=== PATIENT | female | born 1945 | race Caucasian/White ===

== ENCOUNTER → 2018-12-05 | Day surgery (SDC) | payer MEDICARE ==
[~2018-12-05] MED LIST: ASPIRIN81 MG PO; ATORVASTATIN CA20 MG PO; FENTANYL CITRATE/PF 100MCG/2 ML INJ ONE; LISINOPRIL5 MG PO; MIDAZOLAM HCL 2 MG/2 ML VIAL ONE; OR PHACO EYE KIT ONE; PREOP PHACO EYE KIT ONE; PRILOSEC40 MG PO; SYNTHROID50 MCG PO; ZOCOR40 MG PO
--- OUTSIDE RECORDS SUMMARY | 2018-12-05 07:08 | XMS REPORT ---
Author Author [facility] Address Unknown Phone Unavailable Care Team Providers [employer] Counter Clerk Name Role Phone Unavailable Unavailable Payers Payer Name Policy Type Policy Number Effective Date Expiration Date Problems This patient has no known problems. Allergies, Adverse Reactions, Alerts Allergy Name Allergy Type Status Severity Reaction(s) Onset Date Inactive Date Treating Clinician Comments codeine DA Active U 2012-09-28 00:00:00 loratadine DA Active U 2012-09-28 00:00:00 levofloxacin DA Active U 2012-09-28 00:00:00 Medications This patient has no known medications. Results Test Description Test Time Test Comments Text Results Atomic Results Result Comments ACETYLCHOLINE RECEPT BINDNG AB 2018-10-02 15:09:00 ACETYLCHOLINE RECEPT BINDNG AB (test code=ACETAB) <0.03 nmol/L 0.00-0.24 Negative: 0.00 - 0.24 Borderline: 0.25 - 0.40 Positive: > 0.40Performed At: [facility] [id number] Lucio MD Ph:[phone] [id number] 02:57:00* Test Item Value Reference Range Comments TROPONIN-I (test code=TROPI) 0.053 ng/mL 0-0.045 RESULT VERIFIED BY REPEAT ANALYSIS COMMENTS TO MIRROR SPECIALIST: COLLECT 3 HOURS AFTER PREVIOUS [id number] 23:40:00* Test Item Value Reference Range Comments TROPONIN-I (test code=TROPI) 0.062 ng/mL 0-0.045 RESULT VERIFIED BY REPEAT ANALYSIS COMMENTS TO MIRROR SPECIALIST: COLLECT 3 HOURS AFTER PREVIOUS SAMPLE- CTA [id number] 22:58:00 Name: [facility] : 1945 Age/S: 72 / F Larissa Arias Unit #: [id number] Loc: [place] [address] Phys: Fatuma Valladares MD Acct: [id number] Dis Date: Status: ADM IN PHONE #: [phone] Exam Date: 09/28/2018 2200 FAX #: [phone] Reason: stroke EXAMS: CPT CODE: [id number] CTA NECK 95447 HISTORY: stroke TECHNIQUE: Cerebral and Cervical CT angiography was acquired in the axial plane after bolus IV administration of iodinated contrast. Multiplanar, maximum intensity projection (MIP), and volume rendered reconstructions were created on the 3-D workstation. Automated exposure control for dose reduction. COMPARISON: MR of the brain earlier today at 6:08 PM FINDINGS: Bilateral distal cervical ICAs are patent. Atherosclerotic vascular calcification and luminal irregularity of the bilateral cavernous ICA segments. Bilateral petrous and supraclinoid ICA segments are patent. Normal enhancement of the bilateral ophthalmic arteries. Bilateral A1 and distal VENITA segments are patent. Anterior communicating artery is present. Bilateral M1 and proximal MCA branches are patent. No aneurysm. There is decreased perfusion of the right cerebral hemisphere compared to the left however no discrete obstructing lesion is seen in the right MCA branches. Bilateral distal vertebral arteries are patent. The left vertebral artery is larger than the right. Basilar artery is patent. Bilateral PICAs and SCAs are patent. Normal appearance of the basilar tip. Bilateral P1 and distal SECURITY SYSTEM ENGINEER segments are patent. Bilateral posterior communicating arteries are present with the left posterior commuting artery being hypoplastic. No aneurysm. Dural venous sinuses and proximal internal jugular veins are patent. Visualized brain parenchyma is unremarkable. No mass-effect or midline shift. No hydrocephalus. Visualized paranasal sinuses and mastoid air cells are clear. Regional osseous structures structures are intact. IMPRESSION: Patent internal carotid arteries bilaterally and patent vertebrobasilar system with no proximal occlusions or aneurysms. Patent proximal anterior middle and posterior cerebral arteries. There is dec reased perfusion in the right hemisphere in the territory of the distal MCA branches but no discrete occlusion is visualized proximally. PAGE 1 Signed Report (CONTINUED) Name: [facility] D OB: 1945 Age/S: 72 / F [address] Unit #: [id number] Loc: [place] [address] Phys: Fatuma Diaz i, MD Acct: [id number] Dis Date: Status: ADM IN PHONE #: [phone] Exam Date: 09/28/20182199 FAX #: [phone] Reason: stroke EXAMS: CPT CODE: [id number] CTA NECK 65875 <Continued> at 2258 Reported and signed by: Ab Ely MD CC: Fatuma Valladares MD; Harry Angeles MD Technologist:Suyapa CEDEÑO(R); CATY Acosta CTDI: DLP: Trnscb Date/Time: 09/28/2018 (2257) t.SDR.RR31 Orig Print D/T: S: 09/28/2018 (7119) PAGE 2 Signed Report - CTA [id number] 22:58:00 Name: [facility] : 1945 Age/S: 72 / F [address] Unit #: [id number] Loc: [place] [address] Phys: Fatuma Valladares MD Acct: [id number] Dis Date: Status: ADM IN PHONE #: [phone] Exam Date: 09/28/20182199 FAX #: [phone] Reason: stroke EXAMS: CPT CODE: [id number] CTA HEAD 25969 HISTORY: stroke TECHNIQUE: Cerebral and Cervical CT angiography was acquired in the axial plane after bolus IV administration of iodinated contrast. Multiplanar, maximum intensity projection (MIP), and volume rendered reconstructions were created on the 3-D workstation. Automated exposure control for dose reduction. COMPARISON: MR of the brain earlier today at 6:08 PM FINDINGS: Bilateral distal cervical ICAs are patent. Atherosclerotic vascular calcification and luminal irregularity of the bilateral cavernous ICA segments. Bilateral petrous and supraclinoid ICA segments are patent. Normal enhancement of the bilateral ophthalmic arteries. Bilateral A1 and distal VENITA segments are patent. Anterior communicating artery is present. Bilateral M1 and proximal MCA branches are patent. No aneurysm. There is decreased perfusion of the right cerebral hemisphere compared to the left however no discrete obstructing lesion is seen in the right MCA branches. Bilateral distal vertebral arteries are patent. The left vertebral artery is larger than the right. Basilar artery is patent. Bilateral PICAs and SCAs are patent. Normal appearance of the basilar tip. Bilateral P1 and distal SECURITY SYSTEM ENGINEER segments are patent. Bilateral posterior communicating arteries are present with the left posterior commuting artery being hypoplastic. No aneurysm. Dural venous sinuses and proximal internal jugular veins are patent. Visualized brain parenchyma is unremarkable. No mass-effect or midline shift. No hydrocephalus. Visualized paranasal sinuses and mastoid air cells are clear. Regional osseous structures structures are intact. IMPRESSION: Patent internal carotid arteries bilaterally and patent vertebrobasilar system with no proximal occlusions or aneurysms. Patent proximal anterior middle and posterior cerebral arteries. There is dec reased perfusion in the right hemisphere in the territory of the distal MCA branches but no discrete occlusion is visualized proximally. PAGE 1 Signed Report (CONTINUED) Name: [facility] D OB: 1945 Age/S: 72 / F [address] [facility] Unit #: [id number] Loc: [place] [address] Phys: Fatuma Diaz i, MD Acct: [id number] Dis Date: Status: ADM IN PHONE #: [phone] Exam Date: 09/28/2018 220 FAX #: Reason: stroke EXAMS: CPT CODE: [id number] CTA HEAD 89189 <Continued> at 2253 Reported and signed by: Ab Ely MD CC: Fatuma Valladares MD; Harry Angeles MD Technologist:Suyapa Rao RT(R); CATY Acosta CTDI: DLP: Trnscb Date/Time: 09/28/2018 (2257) [email or web address] Orig Print D/T: S: 09/28/2018 (2067) PAGE 2 Signed Report - MRI BRAIN W WO [id number] 18:45:00 FAX: Fatuma Busby MD [phone] [place]: B St: ADM FAX: Zulema KarthikHarry Kapadia MD [phone] Name: [facility] : 1945 Age/S: 72/F [address] [facility] Unit #: [id number] Loc: V.[address] [place] [address] Phys: Fatuma Valladares MD Acct: [id number] Dis Date: Status: ADM IN PHONE #: [phone] Exam Date: 09/28/20181831 FAX #: [phone] Reason: stroke EXAMS: CPT CODE: [id number] MRI BRAIN W WO CONT 24803 REASON FOR EXAM: stroke Exam Order Date: 09/28/2018 4:12 PM Attending M.D.: Fatuma Valladares MD Procedu re: - MRI BRAIN W WO CONT Comparison: CT scan of the brain roxy r today at 8:53 AM FINDINGS: Axial, sagittal, and coronal images o f the head were obtained using T1, T2 weighted, inversion recovery, diffus ion weighted, and gradient echo sequences. Intravenous gadolinium was given. The sagittal images show normal pituitary, cerebellum, a nd brain stem. No evidence of suprasellar mass. The axial T2 , inversion recovery, and gradient echo images show no evidence of intra o r extra axial mass. The ventricles, cisterns, and sulci are unremarkable. No evidence of hemorrhage. The cerebellar pontine angle area is wi thin normal limits. There is no evidence of mass noted. The axial T1 images show no evidence of mass. Previously seen hypodens e lesion in the adonis on the previous head CT does not demonstrate restrict ed diffusion on this exam. However there is a 3 mm x 5 mm lesion with diff usion restriction in the right caudate nucleus head (). This lesion de monstrates hypointense signal on the apparent diffusion coefficient sequen angel luis and hyperintense signal on the inversion recovery images compatible wi th an ischemic event greater than 6 hours since onset. No other diffusion restricting lesions are seen. Inversion recovery images demo nstrate multiple hyperintense foci throughout the white matter likely repr esenting microvascular ischemic changes. No contrast enhanci ng lesion. The coronal images show normal optic chiasm. PAGE 1 Signed Report (CONTINUED) FA X: Fatuma Busby MD [phone] [place]: St: ADM FAX: Harry Mendez MD [phone] Name: RHINA IVORY [facility] : 1945 Age/S: 72/F [address] [facility] Unit #: [id number] Loc: V.5[address] [place] [address] Phys: Fatuma Valladares MD Acct: [id number] Dis Date: Status: ADM IN PHONE #: [phone] Exam Date: 09/28/2018 183 FAX #: [phone] Reason: stroke EXAMS: CPT CODE: [id number] MRI BRAIN W WO CONT 75512 <Continued> IMPRESSION: Acute infarction greater than 6 hours since onset in the head of the right caudate nucleus. 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 Microvascular ischemic changes throughout the white matter. at 1845 Reported and signed by: Ab Ely MD CC: Fatuma Valladares MD; Harry Angeles MD Technologist: Chely Morgan)(MR) Trnscrd Date/Time/By: 09/28/2018 (1844) : By: [email or web address] Orig Print D/T: S: 09/28/2018 (1847) PAGE 2 Signed Report COMPREHENSIVE METABOLIC [id number] 09:12:00* Test Item Value Reference Range Comments SODIUM (test code=NA) 143 mmol/L 136-145 POTASSIUM (test code=K) 3.9 mmol/L 3.5-5.1 CHLORIDE (test code=CL) 107 mmol/L 101-109 CARBON DIOXIDE (test code=CO2) 29.3 mmol/L 21-32 ANION GAP (test code=GAP) 11 mmol/L 10-20 GLUCOSE (test code=GLU) 117 mg/dL 74-106 BLOOD UREA NITROGEN (test code=BUN) 10 mg/dL 3-21 CREATININE (test code=CREAT) 1.16 mg/dL 0.55-1.3 BUN/CREATININE RATIO (test code=BUN/CREA) 8.6 10-20 TOTAL PROTEIN (test code=PROT) 7.0 g/dL 6.5-8.4 ALBUMIN (test code=ALB) 3.6 g/dL 3.4-4.8 GLOBULIN (test code=GLOB) 3.4 G/DL 1-10 ALBUMIN/GLOBULIN RATIO (test code=A/G) 1.06 RATIO 0.75-1.50 CALCIUM (test code=CA) 8.9 mg/dL 8.4-10.2 BILIRUBIN TOTAL (test code=BILT) 0.30 mg/dL 0.0-1.0 SGOT/AST (test code=AST) 19 U/L 6-32 SGPT/ALT (test code=ALT) 19 U/L 12-78 Note: Change in REFERENCE RANGE due to new reagent method. ALKALINE PHOSPHATASE TOTAL (test code=ALKP) 63 U/L 38-126 [id number] 09:12:00* Test Item Value Reference Range Comments TROPONIN-I (test code=TROPI) 0.13 ng/mL 0.00-0.[address]MANEEVESEby SCOTT 09/28/18 0912Critical results verified and read back by Nurse? Y PROTHROMBIN [id number] 09:09:00* Test Item Value Reference Range Comments PROTHROMBIN TIME PATIENT (test code=PTP) 10.9 seconds 9.0-13.0 INTERNATIONAL NORMAL RATIO (test code=INR) 1.1 0.8-1.2 The therapeutic range for oral anticoagulant therapy formost indications is an international normalized ratio (INR)of between 2.0 and 3.0. The recommended therapeutic INRrange for various clinical situations is listed below: Clinical Situation INR range Pulmonary e mbolism treatment (2.0-3.0)Venous thrombosis treatmentVenous thrombosis prophylaxis (high risk surgery)Prevention of systemic embolism from: Acute myocardial infarction Valvular heart disease Atrial fibrillation Mechanical prosthetic heart valves (2.5-3.5) IS PATIENT ON ANTICOAGULANTS? NTHROMBOPLASTIN TIME [id number] 09:09:00* Test Item Value Reference Range Comments THROMBOPLASTIN TIME PARTIAL (test code=PTT) 28.1 seconds 25.5-34.3 Therapeutic Range for patients on Heparin Therapy is 2 to2.5 times their baseline PTT level. IS PATIENT ON ANTICOAGULANTS? N- CT HEAD/BRAIN W/O [id number] 09:06:00 Name: RHINA IVORY [facility] : 1945 Age/S: 72 / F [address] [facility] Unit #: [id number] Loc: [place] [address] Phys: Franklin Ochoa MD Acct: [id number] Di s Date: Status: REG ER PHONE #: Exam Date: 09/28/2018 0850 FAX #: [phone] Reason: dizzy EXAMS: CPT CODE: [id number] CT HEAD/BRAIN W/O CONT 71514 HISTORY: Dizziness. COMPARISON: September 28, 2012. CT brain without contrast: A utomated exposure control. No acute intracranial bleeds or extra-a xial collections are noted. No acute territorial vascular infarction is no haydee. Old infarct in the left adonis. The sulci, gyri, ventricl es and subarachnoid spaces and the basilar cisterns are normal for patient 's age. No herniation or hydrocephalus or midline shift is noted. Mild periventricular ischemic gliosis is noted. Age-appropriate atro phy is noted as well. Portions of the visualized paranasal sinuses are normal. No obvious bony calvarial defect is noted. IMPRESSION: No acute intracranial bleeds or extra-axial collections. No acute territorial vascular infarction. No herniation or hydrocephalus or midline shift. C hronic white matter ischemic disease and atrophy . at 0906 Reported and signed by: Tyson Colon M.D. CC: Franklin Ochoa MD; Harry Angeles MD Technologist:TIMOTHY SHELDON RT(R),CT CTDI: DLP: Trnscb Date/Time: 09/28/2018 (905) t.[email or web address].TH4 Orig Print D/T: S: 09/28/2018 (0909) PAGE 1 Signed Report COMPREHENSIVE METABOLIC PANEL 2018-09-28 08:57:00* Test Item Value Reference Range Comments SODIUM (test code=NA) 143 mmol/L 136-145 POTASSIUM (test code=K) 3.9 mmol/L 3.5-5.1 CHLORIDE (test code=CL) 107 mmol/L 101-109 CARBON DIOXIDE (test code=CO2) 29.3 mmol/L 21-32 ANION GAP (test code=GAP) 11 mmol/L 10-20 GLUCOSE (test code=GLU) 117 mg/dL 74-106 BLOOD UREA NITROGEN (test code=BUN) 10 mg/dL 3-21 CREATININE (test code=CREAT) 1.16 mg/dL 0.55-1.3 BUN/CREATININE RATIO (test code=BUN/CREA) 8.6 10-20 TOTAL PROTEIN (test code=PROT) gram/dL 6.4-8.2 ALBUMIN (test code=ALB) g/dL 3.4-5.0 GLOBULIN (test code=GLOB) g/dL 2.7-4.2 ALBUMIN/GLOBULIN RATIO (test code=A/G) 0.75-1.50 CALCIUM (test code=CA) 8.9 mg/dL 8.4-10.2 BILIRUBIN TOTAL (test code=BILT) mg/dL 0.2-1.2 SGOT/AST (test code=AST) IUnit/L 15-37 SGPT/ALT (test code=ALT) U/L 10-69 ALKALINE PHOSPHATASE TOTAL (test code=ALKP) IUnit/L 45-117 [id number] 08:57:00* Test Item Value Reference Range Comments TROPONIN-I (test code=TROPI) ng/mL 0-0.045 CBC W/AUTO [id number] 08:48:00* Test Item Value Reference Range Comments WHITE BLOOD CELL (test code=WBC) 5.3 K/mm3 4.5-12.5 RED BLOOD CELL (test code=RBC) 4.94 mill/mm3 3.7-5.2 HEMOGLOBIN (test code=HGB) 12.6 gram/dL 11.5-15.5 HEMATOCRIT (test code=HCT) 41.4 % 36.0-46.0 MEAN CELL VOLUME (test code=MCV) 83.8 fL 80-98 MEAN CELL HGB (test code=MCH) 25.5 picogram 27.0-33.0 MEAN CELL HGB CONCETRATION (test code=MCHC) 30.4 gram/dL 33.0-36.0 RED CELL DISTRIBUTION WIDTH (test code=RDW) 15.2 % 11.6-16.2 RED CELL DISTRIBUTION WIDTH SD (test code=RDW-SD) 46.7 fL 37.0-51.0 PLATELET COUNT (test code=PLT) 260 K/mm3 150-450 MEAN PLATELET VOLUME (test code=MPV) 9.2 fL 6.7-11.0 NEUTROPHIL % (test code=NT%) 62.4 % 39.0-69.0 LYMPHOCYTE % (test code=LY%) 27.6 % 25.0-55.0 MONOCYTE % (test code=MO%) 6.7 % 0.0-10.0 EOSINOPHIL % (test code=EO%) 2.5 % 0.0-5.0 BASOPHIL % (test code=BA%) 0.6 % 0.0-1.0 NEUTROPHIL # (test code=NT#) 3.29 K/mm3 1.8-7.7 LYMPHOCYTE # (test code=LY#) 1.45 K/mm3 1.0-5.0 MONOCYTE # (test code=MO#) 0.35 K/mm3 0-0.8 EOSINOPHIL # (test code=EO#) 0.13 K/mm3 0.0-0.5 BASOPHIL # (test code=BA#) 0.03 K/mm3 0.0-0.2 MANUAL DIFF REQUIRED (test code=MDIFF) NO - MRI L-SPINE W/O [id number] 16:12:00 FAX: Harry Mendez MD [phone] [place]: St: REG Name: [facility] : [birth year] Age/S: 72/F [address] [facility] Unit #: [id number] Loc: [place] [address] Phys: Harry Angeles MD Acct: [id number] Dis Date: Status: REG CLI PHONE #: [phone] Exam Date: 09/19/2018 1530 FAX #: [phone] Reason: M54.31 EXAMS: CPT CODE: [id number] MRI L-SPINE W/O CONT 53466 REASON FOR EXAM: M54.31 Exam Order Date: 09/19/2018 2:39 PM Attending M.D.: Harry Angeles MD Comparison: Procedure: - MRI L-SPINE W/O CONT COMPARISON: 08/31/2014 FINDINGS: Sagittal and axial images of the lumbar spine were obtained in in T1, T2, and proton density with fat saturation. No IV gadolinium was given. The sagit jeffry images show within normal alignment of the lumbar spine. No evidence o f diskitis or osteomyelitis. The axial images show no evidence of cord compression. The cord is unremarkable without evidence of in tramedullary mass. IMPRESSION: T12-L1: Moderate focal c entral disc bulge with minimal central canal stenosis. No evidence of ne ural foramen narrowing L3-4: Minimal to mild broad-based disc bulge with minimal narrowing of bilateral neural foramen L4-5: Mild broad- based disc bulge with minimal narrowing of bilateral neural foramen more pronounced on the right L5-S1: Anterior translation of L5-S1 consistent with grade 1 spondylolisthesis. Moderate to severe narrowing of bilater al neural foramen The findings are grossly stable when compared to previous exam of 08/31/2014 at 1612 Reported and signed by: Edith Marina M.D. CC: Harry Angeles MD Tech nologist: Chely Woodward(R)(MR) Trnscrd Date/Ti me/By: 09/19/2018 (5522) : By: Marissa Orig Print D/T: S: 09/19/2018 (4534) PAGE 1 Signed Report COMPREHENSIVE METABOLIC [id number] 10:39:00* Test Item Value Reference Range Comments SODIUM (test code=NA) 141 mmol/L 136-145 POTASSIUM (test code=K) 3.6 mmol/L 3.5-5.1 CHLORIDE (test code=CL) 107.0 mmol/L 98-107 CARBON DIOXIDE (test code=CO2) 29.0 mmol/L 21-32 ANION GAP (test code=GAP) 8.6 10-20 GLUCOSE (test code=GLU) 83 mg/dL 74-106 BLOOD UREA NITROGEN (test code=BUN) 9 mg/dL 7-18 GLOMERULAR FILTRATION RATE (test code=GFR) 49 mL/min >=60 Estimated GFR by using Modified MDRD formula.Chronic kidney disease is defined as either kidney damageor GFR <60 mL/min/1.73 m2 for >3 months. CREATININE (test code=CREAT) 1.10 mg/dL 0.55-1.02 Note change in reference range due to change in reagent. BUN/CREATININE RATIO (test code=BUN/CREA) 8.2 10-20 TOTAL PROTEIN (test code=PROT) 7.7 gram/dL 6.4-8.2 ALBUMIN (test code=ALB) 3.9 g/dL 3.4-5.0 GLOBULIN (test code=GLOB) 3.8 gram/dL 2.7-4.2 ALBUMIN/GLOBULIN RATIO (test code=A/G) 1.0 0.75-1.50 CALCIUM (test code=CA) 9.0 mg/dL 8.5-10.1 BILIRUBIN TOTAL (test code=BILT) 0.40 mg/dL 0.0-1.0 SGOT/AST (test code=AST) 19 IUnit/L 15-37 SGPT/ALT (test code=ALT) 21 IUnit/L 12-78 ALKALINE PHOSPHATASE TOTAL (test code=ALKP) 69 IUnit/L 45-117 Note change in reference range due to change in reagent. LIPID PROFILE (CORONARY RISK)2018-05-04 10:39:00* Test Item Value Reference Range Comments TRIGLYCERIDES (test code=TRIG) 194 mg/dL 20-150 CHOLESTEROL (test code=CHOL) 253 mg/dL 0-200 CHOLESTEROL/HDL RATIO (test code=CHOLHDL) 4.0 RATIO 0-4.9 RISK ASSOCIATED WITH CHOL/HDL RATIOS: Risk Male Female1/2 AVERAGE 3.43 3.27AVERAGE 4.97 4.442X AVERAGE 9.55 7.053X AVERAGE 23.39 11.04 REFERENCE VALUE IS RELATED TO RISK LEVELS ASRECOMMENDED BY THE ISELA. HEART, LUNG, AND BLOOD INST. HDL CHOLESTEROL (test code=HDL) 51 mg/dL 40-60 LIPOPROTEIN LDL (test code=LDL) 168 mg/dL 100-129 RN PERSONNEL, CONTACT PHYSICIAN IMMEDIATELY IF THIS IS A STROKE, AMI OR CAROTID STENOSIS PATIENT WHEN THE LDL >100 (1ST OCCURENCE, THIS ADMISSION) Reference Interval: mg/dL mmol/L Optimal <100 <2.6Near/above optimal 100-129 2.6- 3.3Borderline High 130-159 3.4-4.1High 160-189 4.1-4.9Very High >=190 >=4.9=========This LDL result is a direct measurement.========= THYROID STIMULATING [id number] 10:39:00* Test Item Value Reference Range Comments THYROID STIMULATING HORMONE (test code=TSH) 6.760 uIU/mL 0.36-3.74 TSH REFERENCE RANGES: EUTHYROID: 0.35 - 4.3 mIU/mL HYPO : > 5.5 mIU/mL HYPER : < 0.35 mIU/mL COMPREHENSIVE METABOLIC [id number] 10:22:00* Test Item Value Reference Range Comments SODIUM (test code=NA) 141 mmol/L 136-145 POTASSIUM (test code=K) 3.6 mmol/L 3.5-5.1 CHLORIDE (test code=CL) 107.0 mmol/L 98-107 CARBON DIOXIDE (test code=CO2) mmol/L 21-32 ANION GAP (test code=GAP) 10-20 GLUCOSE (test code=GLU) mg/dL 74-106 BLOOD UREA NITROGEN (test code=BUN) mg/dL 7-18 GLOMERULAR FILTRATION RATE (test code=GFR) mL/min >=60 CREATININE (test code=CREAT) mg/dL 0.55-1.02 BUN/CREATININE RATIO (test code=BUN/CREA) 10-20 TOTAL PROTEIN (test code=PROT) gram/dL 6.4-8.2 ALBUMIN (test code=ALB) g/dL 3.4-5.0 GLOBULIN (test code=GLOB) gram/dL 2.7-4.2 ALBUMIN/GLOBULIN RATIO (test code=A/G) 0.75-1.50 CALCIUM (test code=CA) mg/dL 8.5-10.1 BILIRUBIN TOTAL (test code=BILT) mg/dL 0.0-1.0 SGOT/AST (test code=AST) IUnit/L 15-37 SGPT/ALT (test code=ALT) IUnit/L 12-78 ALKALINE PHOSPHATASE TOTAL (test code=ALKP) IUnit/L 45-117 LIPID PROFILE (CORONARY RISK)2018-05-04 10:22:00* Test Item Value Reference Range Comments TRIGLYCERIDES (test code=TRIG) mg/dL 20-150 CHOLESTEROL (test code=CHOL) mg/dL 0-200 CHOLESTEROL/HDL RATIO (test code=CHOLHDL) RATIO 0-4.9 HDL CHOLESTEROL (test code=HDL) mg/dL 40-60 LIPOPROTEIN LDL (test code=LDL) mg/dL 100-129 THYROID STIMULATING [id number] 10:22:00* Test Item Value Reference Range Comments THYROID STIMULATING HORMONE (test code=TSH) uIU/mL 0.36-3.74 PROTHROMBIN [id number] 09:26:00* Test Item Value Reference Range Comments PROTHROMBIN TIME PATIENT (test code=PTP) 11.4 seconds 9.0-14.0 INTERNATIONAL NORMAL RATIO (test code=INR) 1.0 0.8-1.2 The therapeutic range for oral anticoagulant therapy formost indications is an international normalized ratio (INR)of between 2.0 and 3.0. The recommended therapeutic INRrange for various clinical situations is listed below: Clinical Situation INR range Pulmonary e mbolism treatment (2.0-3.0)Venous thrombosis treatmentVenous thrombosis prophylaxis (high risk surgery)Prevention of systemic embolism from: Acute myocardial infarction Valvular heart disease Atrial fibrillation Mechanical prosthetic heart valves (2.5-3.5) THROMBOPLASTIN TIME [id number] 09:26:00* Test Item Value Reference Range Comments THROMBOPLASTIN TIME PARTIAL (test code=PTT) 36.6 seconds 25.0-36.5 CBC W/AUTO [id number] 09:10:00* Test Item Value Reference Range Comments WHITE BLOOD CELL (test code=WBC) 6.1 K/mm3 4.5-12.5 RED BLOOD CELL (test code=RBC) 4.62 mill/mm3 3.7-5.2 HEMOGLOBIN (test code=HGB) 12.8 gram/dL 11.5-15.5 HEMATOCRIT (test code=HCT) 41.4 % 36.0-46.0 MEAN CELL VOLUME (test code=MCV) 89.6 fL 80-98 MEAN CELL HGB (test code=MCH) 27.7 picogram 27.0-33.0 MEAN CELL HGB CONCETRATION (test code=MCHC) 30.9 gram/dL 33.0-36.0 RED CELL DISTRIBUTION WIDTH (test code=RDW) 14.8 % 11.6-16.2 RED CELL DISTRIBUTION WIDTH SD (test code=RDW-SD) 48.7 fL 37.0-51.0 PLATELET COUNT (test code=PLT) 296 K/mm3 150-450 MEAN PLATELET VOLUME (test code=MPV) 9.4 fL 6.7-11.0 NEUTROPHIL % (test code=NT%) 70.6 % 39.0-69.0 IMMATURE GRANULOCYTE % (test code=IG%) 0.3 % 0.0-5.0 LYMPHOCYTE % (test code=LY%) 17.2 % 25.0-55.0 MONOCYTE % (test code=MO%) 8.2 % 0.0-10.0 EOSINOPHIL % (test code=EO%) 3.0 % 0.0-5.0 BASOPHIL % (test code=BA%) 0.7 % 0.0-1.0 NUCLEATED RBC % (test code=NRBC%) 0.0 % 0-0 NEUTROPHIL # (test code=NT#) 4.31 K/mm3 1.8-7.7 IMMATURE GRANULOCYTE # (test code=IG#) 0.02 x10 3/uL 0-0.03 LYMPHOCYTE # (test code=LY#) 1.05 K/mm3 1.0-5.0 MONOCYTE # (test code=MO#) 0.50 K/mm3 0-0.8 EOSINOPHIL # (test code=EO#) 0.18 K/mm3 0.0-0.5 BASOPHIL # (test code=BA#) 0.04 K/mm3 0.0-0.2 NUCLEATED RBC # (test code=NRBC#) 0.00 K/mm3 0.0-0.1 - XR CHEST 2 [id number] 08:26:00 FAX: Zamzam Clay [phone] [place]: O St: PRE FAX: Harry Mendez MD [phone] Name: [facility] : 1945 Age/S: 72/F [address] Unit #: [id number] Loc: [place] [address] Phys: Zamzam Escobar MD Acct: [id number] Dis Date: Status: PRE SDC PHONE #: [phone] Exam Date: 05/04/2018814 FAX #: [phone] Reason: PRE OP EXAMS: CPT CODE: [id number] XR CHEST 2 V 37758 HISTORY: Preop. COMPARISON: March 29, 2018. AP and lateral view of the chest: No acute infiltrates, effusion or congestion. Cardiac and the mediastinal silhouette are normal. IMPRESSION: No acute infiltrates, effusion or congestion. at 0826 Reported and signed by: Tyson Colon M.D. CC: Zamzam Escobar MD; Harry Angeles MD Technologist: Sintia Reardon RT(R) Trnscrd Date/Time/By: 05/04/2018 (825) : By: [email or web address] Orig Print D/T: S: 05/04/2018 (0845) PAGE 1 Signed Report BASIC METABOLIC [id number] 14:30:00* Test Item Value Reference Range Comments SODIUM (test code=NA) 139 mmol/L 136-145 POTASSIUM (test code=K) 3.8 mmol/L 3.5-5.1 CHLORIDE (test code=CL) 104.0 mmol/L 98-107 CARBON DIOXIDE (test code=CO2) 26.0 mmol/L 21-32 ANION GAP (test code=GAP) 12.8 10-20 GLUCOSE (test code=GLU) 90 mg/dL 74-106 BLOOD UREA NITROGEN (test code=BUN) 14 mg/dL 7-18 GLOMERULAR FILTRATION RATE (test code=GFR) 44 mL/min >=60 Estimated GFR by using Modified MDRD formula.Chronic kidney disease is defined as either kidney damageor GFR <60 mL/min/1.73 m2 for >3 months. CREATININE (test code=CREAT) 1.20 mg/dL 0.55-1.02 Note change in reference range due to change in reagent. BUN/CREATININE RATIO (test code=BUN/CREA) 12.0 10-20 CALCIUM (test code=CA) 8.8 mg/dL 8.5-10.1 [id number] 14:30:00* Test Item Value Reference Range Comments TROPONIN-I (test code=TROPI) <0.015 ng/mL 0-0.045 BASIC METABOLIC [id number] 14:19:00* Test Item Value Reference Range Comments SODIUM (test code=NA) 139 mmol/L 136-145 POTASSIUM (test code=K) 3.8 mmol/L 3.5-5.1 CHLORIDE (test code=CL) 104.0 mmol/L 98-107 CARBON DIOXIDE (test code=CO2) mmol/L 21-32 ANION GAP (test code=GAP) 10-20 GLUCOSE (test code=GLU) mg/dL 74-106 BLOOD UREA NITROGEN (test code=BUN) mg/dL 7-18 GLOMERULAR FILTRATION RATE (test code=GFR) mL/min >=60 CREATININE (test code=CREAT) mg/dL 0.55-1.02 BUN/CREATININE RATIO (test code=BUN/CREA) 10-20 CALCIUM (test code=CA) mg/dL 8.5-10.1 [id number] 14:19:00* Test Item Value Reference Range Comments TROPONIN-I (test code=TROPI) ng/mL 0-0.045 CBC W/O [id number] 14:18:00* Test Item Value Reference Range Comments WHITE BLOOD CELL (test code=WBC) 7.7 K/mm3 4.5-12.5 RED BLOOD CELL (test code=RBC) 4.68 mill/mm3 3.7-5.2 HEMOGLOBIN (test code=HGB) 13.0 gram/dL 11.5-15.5 HEMATOCRIT (test code=HCT) 42.1 % 36.0-46.0 MEAN CELL VOLUME (test code=MCV) 90.0 fL 80-98 MEAN CELL HGB (test code=MCH) 27.8 picogram 27.0-33.0 MEAN CELL HGB CONCETRATION (test code=MCHC) 30.9 gram/dL 33.0-36.0 RED CELL DISTRIBUTION WIDTH (test code=RDW) 16.8 % 11.6-16.2 PLATELET COUNT (test code=PLT) 289 K/mm3 150-450 MEAN PLATELET VOLUME (test code=MPV) 9.5 fL 6.7-11.0 CBC W/O [id number] 14:16:00* Test Item Value Reference Range Comments WHITE BLOOD CELL (test code=WBC) K/mm3 4.5-12.5 RED BLOOD CELL (test code=RBC) mill/mm3 3.7-5.2 HEMOGLOBIN (test code=HGB) 13.0 gram/dL 11.5-15.5 HEMATOCRIT (test code=HCT) 42.1 % 36.0-46.0 MEAN CELL VOLUME (test code=MCV) fL 80-98 MEAN CELL HGB (test code=MCH) picogram 27.0-33.0 MEAN CELL HGB CONCETRATION (test code=MCHC) gram/dL 33.0-36.0 RED CELL DISTRIBUTION WIDTH (test code=RDW) % 11.6-16.2 PLATELET COUNT (test code=PLT) K/mm3 150-450 MEAN PLATELET VOLUME (test code=MPV) fL 6.7-11.0 - XR CHEST 1 [id number] 14:10:00 FAX: Abdi Garcia MD [phone] [place]: B St: [facility] FAX: Ally Douglas MD [phone] Name: [facility] : 1945 Age/S: 72/F [address] Unit #: [id number] Loc: [place] [address] Phys: Abdi Garcia MD Acct: [id number] Dis Date: Status: REG ER PHONE #: [phone] Exam Date: 03/29/2018 1407 FAX #: [phone] Reason: CHEST PAIN EXAMS: CPT CODE: [id number] XR CHEST 1 V 01045 HISTORY: Chest pain. COMPARISON: September 28, 2012. No acute infiltrates, effusion or congestion is noted. Mild bullous changes in the upper lobes. Mild cardiomegaly. IMPRESSION: No acute infiltrates, effusion or congestion. at 1410 Reported and signed by: Tyson Colon M.D. CC: Abdi Garcia MD; Ally Dubon MD Technologist: RT KRISTEN(R) Trnscrd Date/Time/By: 03/29/2018 (0870) : By: [email or web address] Orig Print D/T: S: 03/29/2018 (5329) PAGE 1 Signed Report TROPONIN I [id number] 14:07:00* Test Item Value Reference Range Comments TROPONIN I RAPID (test code=TROPIRAP) 0.00 ng/mL <0.08 Please Note New Reference Range 0.00-0.079 ng/mL - Negative>or=0.08 ng/mL - Positive The use of serial sampling and testing protocol is arecommended practice.An elevated troponin level alone is often not sufficient fordiagnosis of myocardial infarction. Troponin results obtained by different assays may vary.Evaluation of the extent of myocardial damage based onincrease of troponin would be valid only if similarmethodology is used.
[2018-12-05 12:30] VITALS: BP 125/73
== END | disposition home or self-care (01) ==
LOC: OR 07:05
PROVIDERS: ATTEND Ophthalmology
DX: H25.12 Age-related nuclear cataract, left eye (principal); I10 Essential (primary) hypertension; K21.9 Gastro-esophageal reflux disease without esophagitis; E03.9 Hypothyroidism, unspecified; E78.5 Hyperlipidemia, unspecified; Z88.6 Allergy status to analgesic agent; Z88.1 Allergy status to other antibiotic agents; Z88.8 Allergy status to other drugs, medicaments and biological substances; Z79.82 Long term (current) use of aspirin; Z86.73 Personal history of transient ischemic attack (TIA), and cerebral infarction without residual deficits
CPT/HCPCS: 66984; J2250; J3010; V2632